=== PATIENT | male | born 1970 | race Caucasian/White ===

== ENCOUNTER 2017-07-26 07:39 | Day surgery (SDC) | payer BC ==
[2017-07-26] MEDS ORDERED: RINGER'S SOLUTION,LACTATED 1,000 ML IV ONE ×2 (08:02→09:20)
[2017-07-26] MEDS ORDERED: RINGER'S SOLUTION,LACTATED 1,000 ML IV PRN ×2 (09:36→14:36)
[2017-07-26 10:32] VITALS: BP 130/85
--- NOTE | 2017-07-26 18:47 | OR ---
Operative Report - Dictated Report Narrative: OPERATIVE REPORT DATE OF OPERATION: 07/26/2017 PREOPERATIVE DIAGNOSIS: Abdominal pain, change in bowel habit, rectal bleeding , no prior dedicated colon studies POSTOPERATIVE DIAGNOSIS: Normal colonoscopy to the cecum OPERATION: Colonoscopy SURGEON: Siobhan Crawford MD ANESTHESIA: GRADY Arteaga CRNA INDICATIONS FOR PROCEDURE: The patient is a 47-year-old male referred by Dr. Billings following a recent episode of left upper quadrant pain with change of bowel habit, no prior dedicated colon studies, and occasional bright red blood on the tissue. FINDINGS: Normal colonoscopy to the cecum. External hemorrhoids without thrombosis or bleeding NARRATIVE OF PROCEDURE: The patient was identified in the holding area, and prior to the administration of anesthetic, a multidisciplinary timeout was observed. With the patient in the left lateral position and after the administration of intravenous sedation, the perineum was inspected. There was no evidence of pilonidal disease or skin breakdown. The external appearance of the anus was normal with exception of slightly engorged external hemorrhoids. Sphincter tone was good. The flexible fiberoptic colonoscope was inserted into the rectum which was insufflated with air. The rectal mucosa and submucosal vascular pattern appeared normal, the prep was seen to be complete. The scope was advanced through the sigmoid colon, up the descending colon, and around the splenic flexure where the triangular haustral architecture of the transverse colon was seen. The scope was advanced across the transverse colon, around the hepatic flexure to the cecum, where the confluence of tenia and the ileocecal valve were identified. The mucosa at this level appeared normal. The scope was then slowly withdrawn in a circular fashion so that all aspects of colonic mucosa were inspected. The colon was normal in course and caliber. The haustral architecture appeared well preserved throughout with no evidence of external compression. The mucosa and submucosal vascular pattern appeared normal, specifically there was no gross evidence to suggest colitis or inflammatory bowel disease and no AV malformations were seen. No denita diverticulosis was demonstrated. No polyps were encountered. The scope was gradually withdrawn to the level of the rectum. As much insufflated air as possible was removed. The scope was withdrawn from the patient and the procedure terminated. The patient tolerated the anesthetic and procedure well without complication and was transferred back to the ambulatory surgery area awake and in stable condition. The patient remained stable throughout a period of postoperative observation. He denied abdominal discomfort, was able to tolerate by mouth intake, and was up without assistance. I shared the operative findings with the patient and he was given copies of the photographs which appear in the medical record. He was discharged home with instructions not to engage in hazardous activity today, but may resume normal activity tomorrow, and advance diet as tolerated. He is to continue those medications as listed in the history and physical exam. A trial of Benefiber was suggested. RECOMMENDATION: Colon surveillance in 10 years depending upon findings and symptoms Reviewed and electronically signed
== END 2017-07-26 07:40 | disposition home or self-care (01) ==
LOC: AMB 07:39
PROVIDERS: ATTEND Surgery
PROC: 0DJD8ZZ Inspection of Lower Intestinal Tract, Via Natural or Artificial Opening Endoscopic (ICD-10-PCS; principal; 2017-07-26 09:00)
DX: Z12.11 Encounter for screening for malignant neoplasm of colon (principal); K64.4 Residual hemorrhoidal skin tags; R19.4 Change in bowel habit; K62.5 Hemorrhage of anus and rectum; R10.12 Left upper quadrant pain; J45.909 Unspecified asthma, uncomplicated; F41.1 Generalized anxiety disorder; Z68.34 Body mass index [BMI] 34.0-34.9, adult

== ENCOUNTER 2018-04-30 08:27 | Observation (INO) ==
[2018-04-30] MEDS ORDERED: NORMAL SALINE 1,000 ML IV ONE (08:39)
[2018-04-30] MEDS ORDERED: LORazepam 2 MG/ML DISP.SYRIN IV ONE ×3 (08:39→09:30)
[2018-04-30] MEDS ORDERED: PROMETHAZINE HCL 12.5 MG in DEXTROSE 5 % IN WATER 50 ML IV ONE ×2 (08:39)
[2018-04-30] MEDS ORDERED: MORPHINE SULFATE 4 MG/ML SYRG IV ONE ×2 (08:42→09:30)
[2018-04-30] MEDS ORDERED: MORPHINE SULFATE 4 MG/ML SYRG ONE ×2 (08:43→09:28)
[2018-04-30] MEDS ORDERED: LORazepam 2 MG/ML DISP.SYRIN ONE (08:44)
[2018-04-30] MEDS ORDERED: ONDANSETRON HCL/PF 2 MG/ML VIAL ONE (08:55)
[2018-04-30] MEDS ORDERED: ONDANSETRON HCL/PF 2 MG/ML VIAL IV ONE (08:57)
[2018-04-30 09:00] LABS: Methemoglobin % 0.2 % (0.41-1.15)
[2018-04-30 09:02] LABS: Carboxyhemoglobin % 1.8 % (0.5-1.5)
[2018-04-30 09:04] LABS: Hemoglobin 16.4 gm/dL (13.5-18.0); Mean Corpuscular Hemoglobin 31.1 pg (27-31); Mean Corpuscular Hgb Conc 34.9 g/dl (32-36); Mean Platelet Volume 10.1 fl (8-11.3); Platelet Count 362 K/mm3 (150-450); Red Blood Count 5.28 M/mm3 (4.7-6.0); Red Cell Distribution Width 11.4 % (11.5-14.0); White Blood Count 17.8 K/mm3 (4.0-10.5)
[2018-04-30 09:08] LABS: Total Cells Counted 100
[2018-04-30 09:12] LABS: Albumin * 4.3 gm/dl (3.4-5.0); Anion Gap 21.6 mmol/L (6.8-13.8); BUN/Creatinine Ratio 8.7 (9.0-21.6); Bilirubin, Total 0.7 mg/dL (0.0-1.1); CRP 0.5 mg/dL (0.0-0.9); Ca. Corrected For Albumin 8.9 mg/dL (8.4-10.2); Calcium * 9.5 mg/dL (7.9-10.9); Carbon Dioxide 20.6 mmol/L (24-32.6); Potassium 3.2 mmol/L (3.4-4.6); Total Protein 7.9 gm/dL (6.2-8.2)
[2018-04-30 09:29] LABS: Basophil 1 % (0-1); Eosinophil 4 % (0-3); Lymphocyte 36 % (20-51); Monocyte 6 % (0-9); Neutrophil 53 % (42-75); Neutrophil # 9.4 K/mm3 (1.3-6.0); Platelet Estimate Normal (NORMAL)
[2018-04-30 09:32] LABS: RBC Morphology Normal (NORMAL)
--- NOTE | 2018-04-30 09:47 | ERNOTE ---
Headache ER HPI - Narrative Date of Service: 04/30/18 - General Presenting Symptoms: headache Time Seen by Provider: 04/30/18 08:36 Source: patient Exam Limitations: no limitations - Immun/Allergies/Home Medications Immunizations: IMMUNIZATION HX Immunizations Up to Date Yes History of Influenza Vaccine No Hx Pneumococcal Vaccination No Allergies/Adverse Reactions: Allergies No Known Allergies Allergy (Verified 07/26/17 07:52) Home Medications: HOME MEDICATIONS ALPRAZolam [Xanax] 0.5 mg PO TID PRN 07/17/17 [Last Taken Unknown] Albuterol Sulfate [Ventolin HFA] 1 puff IH Q4H PRN 07/17/17 [Last Taken Unknown] Melatonin/Pyridoxine HCl (B6) [Melatonin 10 mg Tablet] 1 each PO DAILY 07/17/17 [Last Taken Unknown] Mometasone Furoate [Asmanex] 220 mcg IH DAILY 07/17/17 [Last Taken Unknown] - History of Present Illness Narrative: Patient presents to the ED for severe headache. 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 No other recent illnesses. No fever. This pain goes from his neck to the top of his head. His neck feels stiff. CHINCHILLA worst pain of his life. Never had anything like it before. Hands tingling but no other focal weakness. Nausea and vomiting here. No CP or SOB. Worst headache of his life. No fever, no recent illnesses. He has not had CO exposure or other illness exposures. He relates having headaches in the distant past, not diagnosed with migraines and never a headache this bad. Activity at onset: other - coughing Timing of Headache: abrupt Context Headache: Present: new onset. Absent: CO exposure, meningitis exposure , recent head injury < 24 hrs ago Severity Maximum: Present: severe Severity-Currently: Present: severe Headache frequency: Present: no recent headache Modifying Factors - (Improves): Reports: other - nothing Modifying Factors - (Worsens): Reports: other - nothing Associated Symptoms: Reports: nausea, vomiting, sweating. Denies: fever/chills , facial pain, weakness, loss of consciousness Exacerbated by:: Reports: other - nothing Prior Treament: Denies: recently seen Review of Systems - Review of Systems Constitutional: Absent: fever EYE: Absent: double vision ENT: Absent: sore throat Respiratory: Absent: shortness of breath Cardiology: Absent: chest pain Gastrointestinal/Abdominal: Absent: abdominal pain Neurological: Absent: weakness All Other Systems: All systems neg except as marked - Patient's Past Medical History Patient History - Medical: Anxiety, Depression, Headache, UTI'S, Other Patient History - Cardiac/Respiratory: Asthma Patient History - Cancer: No Hx of Cancer Patient History - Surgical Procedures: T & A, Other, Hernia Repair, Orthopedic Patient History - Other: None - Family History Brother Family History - Medical: Seizures, Other Family History - Cardiac/Respiratory: No pertinent hx Family History - Cancer: No pertinent family hx Father Family History - Medical: History Unknown Family History - Cardiac/Respiratory: History Unknown Family History - Cancer: History Unknown Mother Family History - Medical: Other Family History - Cardiac/Respiratory: No pertinent hx Family History - Cancer: No pertinent family hx Sister Family History - Medical: Other Family History - Cardiac/Respiratory: No pertinent hx Family History - Cancer: No pertinent family hx Son Family History - Medical: , Other Family History - Cardiac/Respiratory: No pertinent hx Family History - Cancer: No pertinent family hx Uncle Family History - Medical: No pertinent hx Family History - Cardiac/Respiratory: Coronary Heart Disease Family History - Cancer: Other - Social History Living Situations: home Abuse History: No History of abuse Psych History: Hx of Anxiety, Hx of Depression Smoking Status: Never smoker Have you smoked in the past 12 months: No Do you dip or chew tobacco: No Alcohol Use: heavy Drug Use: none - Immunizations Immunizations Up to Date: Yes Hx Pneumococcal Vaccination: No History of Influenza Vaccine: No Physical Exam - Physical Exam General Appearance: Present: alert, other - washcloth on his head, moaning Head Exam: Present: normal inspection, no evidence of injury Eye Exam: Normal inspection: bilateral, PERRL: bilateral, EOMI: bilateral Ears, Nose, Throat: Present: normal ENT inspection. Absent: dry mucous membranes Neck: Present: normal inspection, other - no gross nuchal rigidity but relats neck pain. 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 Exam compromsed by patients pain and vomiting but no clear acute motor or sensory deficits. Absent: facial droop, motor weakness Skin Exam: Present: normal color, warm/dry ED Progress - Results and Orders Patient's Lab Results:: I have reviewed the patient's lab results. - Vital Signs Patient's Vital Signs:: I have reviewed the patient's vital signs. Vital Signs: Vital Signs 04/30/18 04/30/18 04/30/18 08:31 08:35 09:05 Temperature 34.5 C L 34.5 C L Pulse Rate 85 85 81 Respiratory 18 18 24 H Rate Blood Pressure 200/103 200/103 162/109 O2 Sat by Pulse 100 100 100 Oximetry - CT/Ultrasound CT/Ultrasound Narrative: I reviewed head CT report per radiology. - Progress/Reassessment Chief Complaint: Headache Progress Note-Subjective: 04/30/18 09:45 Patient with negative HCT. IV fluids, IV morphine and IV ativan given. No relief of pain. Patient's Sx intractable. No clear evidence of stroke. nohtign to suggest meningitis with acute severe CHINCHILLA. D/W Dr Frost will admit for pain control and LP/further workup. Patient is agreeable. Departure Clinical Impression: Worst headache of life, Intractable pain - Departure Disposition: Still a patient Condition: Stable Referrals: Arelis Billings MD [Primary Care Provider] -
[2018-04-30] MEDS ORDERED: DEXAMETHASONE SODIUM PHOSPHATE 10 MG/ML VIAL IV STA (09:53)
[2018-04-30] MEDS ORDERED: diphenhydrAMINE HCL 50 MG/ML VIAL IV STA (09:53)
[2018-04-30] MEDS ORDERED: ALBUTEROL SULFATE 2.5 MG/0.5 ML VIAL.NEB IH PRN (09:59)
[2018-04-30] MEDS ORDERED: ALPRAZolam 0.5 MG TABLET PO PRN (09:59)
[2018-04-30] MEDS ORDERED: NORMAL SALINE 1,000 ML IV PRN (10:00)
[2018-04-30] MEDS ORDERED: POTASSIUM CHLORIDE 20 MEQ TABLET.SA PO ONE (11:00)
--- NOTE | 2018-04-30 11:00 | HP ---
Chief Complaint - Chief Complaint Date of Service: 04/30/18 Time of Service: 10:20 Chief Complaint: Headache History of Present Illness: The patient states that he has asthma and chronic bronchitis and was working on his car this morning when he developed a coughing fit. He states he has multiple episodes of severe coughing, sometimes result in him gagging and dry heaving or actually throwing up. He states this morning his coughing episode was so bad that he had go over to the garbage can and follow-up. He states that he developed a severe headache that started during his coughing fit. He describes the pain as being bilateral and starting in his neck/base of his head and radiating to the front. He denies any vision changes. He denies any photophobia. He denies any tinnitus or photophobia. He denies any sick contacts. He describes the headache as a throbbing pain that is also sharp and stabbing and at the time of my exam, he stated that the headache was waxing and waning. He does admit to having a history of migraines as a teenager but states he has not had any migraines in many many years. - Patient's Past Medical History Patient History - Medical: Anxiety, Depression, Headache, UTI'S, Other Patient History - Cardiac/Respiratory: Asthma Patient History - Cancer: No Hx of Cancer Patient History - Surgical Procedures: T & A, Other, Hernia Repair, Orthopedic Patient History - Other: None - Family History Brother Family History - Medical: Seizures, Other Family History - Cardiac/Respiratory: No pertinent hx Family History - Cancer: No pertinent family hx Father Family History - Medical: History Unknown Family History - Cardiac/Respiratory: History Unknown Family History - Cancer: History Unknown Mother Family History - Medical: Other Family History - Cardiac/Respiratory: No pertinent hx Family History - Cancer: No pertinent family hx Sister Family History - Medical: Other Family History - Cardiac/Respiratory: No pertinent hx Family History - Cancer: No pertinent family hx Son Family History - Medical: , Other Family History - Cardiac/Respiratory: No pertinent hx Family History - Cancer: No pertinent family hx Uncle Family History - Medical: No pertinent hx Family History - Cardiac/Respiratory: Coronary Heart Disease Family History - Cancer: Other - Social History Living Situations: home Abuse History: No History of abuse Psych History: Hx of Anxiety, Hx of Depression Smoking Status: Never smoker Have you smoked in the past 12 months: No Do you dip or chew tobacco: No Alcohol Use: heavy Drug Use: none - Immunizations Immunizations Up to Date: Yes Hx Pneumococcal Vaccination: No History of Influenza Vaccine: No Review Of Systems (GEN) - Review of Systems Generalized/Overall Review: Present: No Symptoms Reported. Absent: Chills, Fever EENTM: Absent: Eye Pain, Blurred Vision, Double Vision Respiratory: Present: Cough - chronic Cardiac: Present: No Symptoms Reported Abdominal: Present: Nausea, Vomiting Genitourinary: Present: No Symptoms Reported Musculoskeletal: Present: No Symptoms Reported Neurological: Present: Headache. Absent: Numbness, Parasthesia, Seizure, Tingling, Weakness Skin: Present: No Symptoms Reported Endocrine: Present: No Symptoms Reported Misc: All systems neg except as marked Immunizations: IMMUNIZATION HX Immunizations Up to Date Yes History of Influenza Vaccine No Hx Pneumococcal Vaccination No Allergies/Adverse Reactions: Allergies Allergy/AdvReac Type Severity Reaction Status Date / Time cat dander Allergy Severe Swelling Verified 04/30/18 10:48 of Face Home Medications: HOME MEDICATIONS Albuterol Sulfate [Ventolin HFA] 1 puff IH Q4H PRN 07/17/17 [Last Taken Unknown] Melatonin/Pyridoxine HCl (B6) [Melatonin 10 mg Tablet] 1 each PO DAILY 07/17/17 [Last Taken Unknown] Mometasone Furoate [Asmanex] 220 mcg IH DAILY 07/17/17 [Last Taken Unknown] Exam - Exam Vital Signs: Vital Signs - Last Taken Temp 34.5 C L 04/30/18 08:35 Pulse 88 04/30/18 09:30 Resp 20 04/30/18 09:30 BP 150/97 04/30/18 09:30 Pulse Ox 100 04/30/18 09:30 Constitutional: Present: Alert, Oriented x3, Cooperative, Well developed, Well nourished, No distress, Obese ENT Exam: Present: hearing grossly normal, moist mucous membranes Eye Exam: bilateral eye: normal inspection Neck: Present: full range of motion. Absent: stiff neck Respiratory: Present: no respiratory distress, no accessory muscle use, other - diminished breath sounds bilaterally Cardiovascular/Chest: Present: regular rate, rhythm, no edema Abdomen: Present: Normal bowel sounds, soft, nontender, nondistended, obese Extremity: Present: normal range of motion, normal inspection, no pedal edema Skin Exam: Present: normal color, warm/dry Neurologic: Present: no motor/sensory deficits, alert, normal mood/affect, oriented x 3, other - No nuchal rigidity appreciated, Kernig's sign negative, Brudzinski's sign negative Appearance: Present: appropriate appearance, appropriate insight, neat, no memory impairment Eye contact: Present: cooperative, good eye contact, normal speech Thoughts: Present: normal thought pattern, no apparent hallucination Diagnostic Studies: Laboratory Results WBC 17.8 K/mm3 (4.0-10.5) H 04/30/18 08:58 RBC 5.28 M/mm3 (4.7-6.0) 04/30/18 08:58 Hgb 16.4 gm/dL (13.5-18.0) 04/30/18 08:58 Hct 47.0 % (42.0-52.0) 04/30/18 08:58 MCV 89.0 fl (78-100) 04/30/18 08:58 MCH 31.1 pg (27-31) H 04/30/18 08:58 MCHC 34.9 g/dl (32-36) 04/30/18 08:58 RDW 11.4 % (11.5-14.0) L 04/30/18 08:58 Plt Count 362 K/mm3 (150-450) 04/30/18 08:58 MPV 10.1 fl (8-11.3) 04/30/18 08:58 Neutrophils % (Manual) 53 % (42-75) 04/30/18 08:58 Lymphocytes % (Manual) 36 % (20-51) 04/30/18 08:58 Monocytes % (Manual) 6 % (0-9) 04/30/18 08:58 Eosinophils % (Manual) 4 % (0-3) H 04/30/18 08:58 Basophils % (Manual) 1 % (0-1) 04/30/18 08:58 Neutrophils # (Manual) 9.4 K/mm3 (1.3-6.0) H 04/30/18 08:58 Lymphocytes # (Manual) 6.4 k/mm3 (1.5-3.5) H 04/30/18 08:58 Monocytes # (Manual) 1.1 k/mm3 (0.0-1.0) H 04/30/18 08:58 Eosinophils # (Manual) 0.7 k/mm3 (0.0-0.7) 04/30/18 08:58 Basophils # (Manual) 0.2 k/mm3 (0.0-0.1) H 04/30/18 08:58 Platelet Estimate Normal (NORMAL) 04/30/18 08:58 RBC Morphology Normal (NORMAL) 04/30/18 08:58 Carboxyhemoglobin 1.8 % (0.5-1.5) H 04/30/18 08:58 Methemoglobin 0.2 % (0.41-1.15) L 04/30/18 08:58 Sodium 138 mmol/L (132-142) 04/30/18 08:58 Plasma Sodium 139 mmol/L (130-142) 04/30/18 08:58 Potassium 3.2 mmol/L (3.4-4.6) L D 04/30/18 08:58 Chloride 99 mmol/L (97-106) 04/30/18 08:58 Carbon Dioxide 20.6 mmol/L (24-32.6) L 04/30/18 08:58 Anion Gap 21.6 mmol/L (6.8-13.8) H 04/30/18 08:58 BUN 12 mg/dL (6-23) 04/30/18 08:58 Creatinine 1.38 mg/dL (0.4-1.4) 04/30/18 08:58 Est GFR (Non-Af Amer) 59 mL/min (60-130) L D 04/30/18 08:58 BUN/Creatinine Ratio 8.7 (9.0-21.6) L 04/30/18 08:58 Random Glucose 170 mg/dL (70-110) H 04/30/18 08:58 Calcium 9.5 mg/dL (7.9-10.9) 04/30/18 08:58 Calcium Adj for Albumin 8.9 mg/dL (8.4-10.2) 04/30/18 08:58 Total Bilirubin 0.7 mg/dL (0.0-1.1) 04/30/18 08:58 AST 48 U/L (0-48) 04/30/18 08:58 ALT 96 U/L (19-67) H 04/30/18 08:58 Alkaline Phosphatase 73 U/L (50-170) 04/30/18 08:58 C-Reactive Prot, Quant 0.5 mg/dL (0.0-0.9) 04/30/18 08:58 Total Protein 7.9 gm/dL (6.2-8.2) 04/30/18 08:58 Albumin 4.3 gm/dl (3.4-5.0) 04/30/18 08:58 Assessment/Plan - Narrative Narrative: Patient admitted to outpatient observation. Give migraine cocktail with IV Decadron and IV Benadryl (patient received IV Zofran in the emergency department so we will hold off on Compazine for now). Start IV fluid hydration with NS at 200 mL per hour. Leukocytosis on admission is possibly reactive and secondary to nausea/vomiting. Physical exam is not consistent with meningitis but we will continue to monitor the patient's headache and if it does not resolve or if it worsens, we'll plan on doing a lumbar puncture at that time. Potassium replacement ordered. Continue to monitor clinical status and hopefully the patient can be discharged home later today. - Assessment/Plan (1) Headache Problem: Acute (2) Leukocytosis Problem: Acute (3) Hypokalemia Problem: Acute
[2018-04-30] MEDS ORDERED: LABETALOL HCL 5 MG/ML VIAL IV ONE (11:28)
[2018-04-30] MEDS ORDERED: LISINOPRIL 10 MG TABLET PO SCH (11:30)
--- NOTE | 2018-04-30 13:34 | DS ---
(1) Headache Problem: Resolved (2) Leukocytosis Problem: Acute (3) Hypokalemia Problem: Acute (4) Hypertension Problem: Chronic Qualifiers: Hypertension type: essential hypertension Qualified Code(s): I10 - Essential (primary) hypertension Description of Stay: ADMISSION DATE: 04/30/2018 DISCHARGE DATE: 04/30/2018 ADMISSION HPI: The patient states that he has asthma and chronic bronchitis and was working on his car this morning when he developed a coughing fit. He states he has multiple episodes of severe coughing, sometimes result in him gagging and dry heaving or actually throwing up. He states this morning his coughing episode was so bad that he had go over to the garbage can and follow-up. He states that he developed a severe headache that started during his coughing fit. He describes the pain as being bilateral and starting in his neck/base of his head and radiating to the front. He denies any vision changes. He denies any photophobia. He denies any tinnitus or photophobia. He denies any sick contacts. He describes the headache as a throbbing pain that is also sharp and stabbing and at the time of my exam, he stated that the headache was waxing and waning. He does admit to having a history of migraines as a teenager but states he has not had any migraines in many many years. HOSPITAL COURSE: The patient was admitted to the hospital observation status after presenting to the emergency department with sudden onset of a severe headache. On exam, the patient has no focal neurologic findings and no nuchal rigidity. He is alert and oriented 3 with no confusion/altered mental status/encephalopathy. After arriving on the [facility] floor, the patient was given IV Benadryl, IV Decadron and he already received Zofran in the ER. In less than 2 hours, the patients headache had completely resolved and he was back to his baseline. The leukocytosis on admission is most likely reactive and secondary to nausea and vomiting. Of note, the patient states that he has a history of elevated blood pressure but has not been following with a doctor regularly to have his blood pressure monitored. We will start him on lisinopril 10 mg daily and have him follow-up with his primary care provider for ongoing management. The patient was discharged home in stable condition and instructed to return to the emergency department if he develops any focal weakness, confusion or if his severe headache returns. FOLLOW-UP APPOINTMENTS: -PCP, Dr. Billings, within 1 week NEW OR CHANGED MEDICATIONS: -Lisinopril 10mg PO daily DISCONTINUED MEDICATIONS: -None RADIOLOGY REPORTS: Head CT without contrast on 04/30/2018: No acute intracranial hemorrhage or mass effect. Procedures Performed: none Results and Findings: Laboratory Tests 04/30/18 04/30/18 04/30/18 08:40 08:40 08:58 WBC 17.8 H RBC 5.28 Hgb 16.4 Hct 47.0 MCV 89.0 MCH 31.1 H MCHC 34.9 RDW 11.4 L Plt Count 362 MPV 10.1 Neutrophils % (Manual) 53 Lymphocytes % (Manual) 36 Monocytes % (Manual) 6 Eosinophils % (Manual) 4 H Basophils % (Manual) 1 Neutrophils # (Manual) 9.4 H Lymphocytes # (Manual) 6.4 H Monocytes # (Manual) 1.1 H Eosinophils # (Manual) 0.7 Basophils # (Manual) 0.2 H Platelet Estimate Normal RBC Morphology Normal ESR 7 Carboxyhemoglobin Methemoglobin Sodium Plasma Sodium Potassium Chloride Carbon Dioxide Anion Gap BUN Creatinine Est GFR (Non-Af Amer) BUN/Creatinine Ratio Random Glucose Calcium Calcium Adj for Albumin Total Bilirubin AST ALT Alkaline Phosphatase C-Reactive Prot, Quant Total Protein Albumin Procalcitonin 0.06 04/30/18 04/30/18 08:58 08:58 WBC RBC Hgb Hct MCV MCH MCHC RDW Plt Count MPV Neutrophils % (Manual) Lymphocytes % (Manual) Monocytes % (Manual) Eosinophils % (Manual) Basophils % (Manual) Neutrophils # (Manual) Lymphocytes # (Manual) Monocytes # (Manual) Eosinophils # (Manual) Basophils # (Manual) Platelet Estimate RBC Morphology ESR Carboxyhemoglobin 1.8 H Methemoglobin 0.2 L Sodium 138 Plasma Sodium 139 Potassium 3.2 L D Chloride 99 Carbon Dioxide 20.6 L Anion Gap 21.6 H BUN 12 Creatinine 1.38 Est GFR (Non-Af Amer) 59 L D BUN/Creatinine Ratio 8.7 L Random Glucose 170 H Calcium 9.5 Calcium Adj for Albumin 8.9 Total Bilirubin 0.7 AST 48 ALT 96 H Alkaline Phosphatase 73 C-Reactive Prot, Quant 0.5 Total Protein 7.9 Albumin 4.3 Procalcitonin Discharge Location: Home Disposition: Home self-care Condition: Stable Discharge Activity: Activity as tolerated Discharge Diet: General/regular food Referrals: Arelis Billings MD [Primary Care Provider] - Additional Patient Instructions (free text): -Follow-up with PCP, Dr. Billings, within 1 week Prescriptions (Any new or edited meds): Lisinopril [Zestril] 10 mg PO DAILY #30 tab Complete Home Medications List: Complete Home Medication List: Albuterol Sulfate [Ventolin HFA] 1 puff IH Q4H PRN 07/17/17 Melatonin/Pyridoxine HCl (B6) [Melatonin 10 mg Tablet] 1 each PO HS PRN Mometasone Furoate [Asmanex] 220 mcg IH DAILY 07/17/17 Lisinopril [Zestril] 10 mg PO DAILY #30 tab 04/30/18
[2018-04-30 14:20] VITALS: BP 141/78
[2018-04-30] MEDS ORDERED: BUDESONIDE 0.5 MG/2 ML VIAL.NEB IH SCH (19:00)
[2018-04-30] MEDS ORDERED: PYRIDOXINE HCL PO SCH (21:00)
[2018-04-30] MEDS ORDERED: MELATONIN PO SCH (21:00)
== END 2018-04-30 14:30 | disposition home or self-care (01) ==
LOC: ER 08:27 → MS 09:45
PROVIDERS: ADMIT Internal Medicine; ATTEND Internal Medicine
DX: Z68.34 Body mass index [BMI] 34.0-34.9, adult; R11.10 Vomiting, unspecified; F32.9 Major depressive disorder, single episode, unspecified; D72.829 Elevated white blood cell count, unspecified; R51 Headache; F41.9 Anxiety disorder, unspecified; I10 Essential (primary) hypertension; E87.6 Hypokalemia
CPT/HCPCS: 36415; 70450; 80053; 82375; 84145; 85025; 85652; 86140; 87040; 96361; 96365; 96375; 96376; 99284; G0378; J2405